=== PATIENT | male | born 2000 | race Two or more races ===

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

== ENCOUNTER 2019-01-27 04:29 | Emergency (ER) | payer MEDICAID ==
[~2019-01-27] VITALS: Ht 190.5 cm; Wt 78.7 kg
[2019-01-27 04:33] VITALS: BP 123/67
== END 2019-01-27 06:35 | disposition home or self-care (01) ==
LOC: ED 05:26
DX: J45.909 Unspecified asthma, uncomplicated (principal); J06.9 Acute upper respiratory infection, unspecified
CPT/HCPCS: 71046; 87081; 87880; 99284

== ENCOUNTER 2019-04-03 13:18 | Emergency (ER) | payer MEDICAID ==
[~2019-04-03] VITALS: Ht 190.5 cm; Wt 76.0 kg
[2019-04-03 14:04] VITALS: BP 122/42
--- NOTE | 2019-04-03 14:25 | NUR ---
PT TO ROOM. FLU SWAB PENDING.
[2019-04-03 14:34] LABS: RAPID INFLUENZA A Negative (Negative); RAPID INFLUENZA B Negative (Negative)
[2019-04-03] MEDS ORDERED: IBUPROFEN 200 MG TABLET ONE (14:57)
[2019-04-03] MEDS ORDERED: DEXAMETHASONE 4 MG TABLET ONE (14:57)
[2019-04-03] MEDS ORDERED: ONDANSETRON ODT 4 MG ONE (14:57)
[2019-04-03] MEDS ORDERED: DEXAMETHASONE 4 MG TABLET PO ONE (15:00)
[2019-04-03] MEDS ORDERED: IBUPROFEN 600 MG TABLET PO ONE (15:00)
[2019-04-03] MEDS ORDERED: ONDANSETRON ODT 4 MG PO ONE (15:00)
== END 2019-04-03 15:21 | disposition home or self-care (01) ==
LOC: ED 14:15
DX: J06.9 Acute upper respiratory infection, unspecified (principal); R11.0 Nausea; R51 Headache; J45.909 Unspecified asthma, uncomplicated; Z87.891 Personal history of nicotine dependence
CPT/HCPCS: 87081; 87400; 87880; 99284; Q0162

== ENCOUNTER 2019-05-03 08:51 | Emergency (ER) | payer MEDICAID ==
[~2019-05-03] VITALS: Ht 190.5 cm; Wt 77.2 kg
[2019-05-03 08:54] VITALS: BP 128/69
[2019-05-03] MEDS ORDERED: IBUPROFEN 600 MG TABLET ONE (09:12)
[2019-05-03] MEDS ORDERED: IBUPROFEN 600 MG TABLET PO ONE (09:30)
== END 2019-05-03 10:31 | disposition home or self-care (01) ==
LOC: ED 10:29
DX: S80.01XA Contusion of right knee, initial encounter (principal); X50.0XXA Overexertion from strenuous movement or load, initial encounter; Y93.89 Activity, other specified; Y92.89 Other specified places as the place of occurrence of the external cause; Y99.8 Other external cause status
CPT/HCPCS: 99283

== ENCOUNTER 2020-05-03 11:47 | Emergency (ER) | payer MEDICAID ==
[~2020-05-03] VITALS: Ht 193 cm; Wt 76.0 kg
[2020-05-03 11:53] VITALS: BP 133/59
[2020-05-03 12:56] LABS: MICROSCOPIC NOT IND
== END 2020-05-03 14:01 | disposition home or self-care (01) ==
LOC: ED 12:05
DX: B37.42 Candidal balanitis (principal); R30.0 Dysuria; Z88.0 Allergy status to penicillin; Z88.8 Allergy status to other drugs, medicaments and biological substances
CPT/HCPCS: 81003; 82962; 87491; 87591; 99283

== ENCOUNTER 2020-05-22 16:50 | Emergency (ER) | payer MEDICAID ==
[~2020-05-22] VITALS: Ht 193 cm; Wt 75.9 kg
[2020-05-22 16:52] VITALS: BP 103/61
== END 2020-05-22 18:55 | disposition home or self-care (01) ==
LOC: ED 17:36
DX: H93.13 Tinnitus, bilateral (principal); H90.2 Conductive hearing loss, unspecified
CPT/HCPCS: 99282